=== PATIENT | female | born 1985 | race Hispanic/Latino ===

== ENCOUNTER 2016-10-08 20:08 | Inpatient (IN) | payer OTHER ==
[~2016-10-08] VITALS: Ht 149.9 cm; Wt 80.7 kg
[~2016-10-08 20:08] MED LIST: PREN1TAB25 PO
[2016-10-08] MEDS ORDERED: Lactated Ringer's 1,000 ML IV PRN (20:47)
[2016-10-08] MEDS ORDERED: Carboprost 250 mCg/mL Inj IM PRN (20:50)
[2016-10-08] MEDS ORDERED: Sodium Chloride LOK Flush 10 mL Syringe IVFLUSH PRN (20:50)
[2016-10-08] MEDS ORDERED: Methylergonovine 0.2 mg/mL Inj IM PRN (20:50)
[2016-10-08] MEDS ORDERED: Oxytocin 10 Unit/mL Inj IM PRN (20:50)
[2016-10-08] MEDS ORDERED: Hemorrhage Kit, Post Partum XX ONE (20:50)
[2016-10-08] MEDS ORDERED: Oxytocin 30 Units/500 mL LR 30 UNITS in IV Premix 1 EACH IV PRN ×2 (20:50→22:05)
[2016-10-08] MEDS ORDERED: Methylergonovine 0.2 mg/mL Inj ONE (20:52)
[2016-10-08 21:12] LABS: Mean Corpuscular Hemoglobin 28.3 pg (27.0-35.0); Mean Corpuscular Volume 87.5 fL (81-100)
--- NOTE | 2016-10-09 08:13 | HP ---
[address] [address] HISTORY AND PHYSICAL PATIENT: TRINA REZA : 1985 MR#: [id number] ADMIT: 10/08/2016 JOB ID: [id number] This is a 31-year-old female, 3, para 2, at 40 weeks plus two days presents to [facility] for leaking of fluid and contractions. She was examined and noted she was gross ruptured and with irregular contractions with category 1 tracing. She was examined as 3 cm dilated. This patient had care at [facility]. She started her care around earlier second-trimester. Her labs was noticed that her blood type is O positive. Pap smear negative 2013. Varicella immune, rubella immune, RPR negative, HBsAg negative, HIV negative. She has a HBA1c 5.9. An early GCT was done. It was normal and the routine GCT was done and from the records available now it was positive. Then 3 hour GTT was ordered at 28 weeks but after that patient left out of [facility] and went to [place] for two months. At that two months, she did not have care. She came back this date and had come for the week of September 20. At that time noticed then she tried to do the GTT but she actually threw up in the middle. By the numbers which were done, she passed the GTT but, at that time, it is not certain whether it was appropriate GTT. Also an ultrasound was ordered for estimated weight and the patient did not get it done, and it was not noticed that GBS is negative. Chlamydia gonorrhea negative. ALLERGIES: The patient has no known drug allergies. PAST MEDICAL HISTORY: Patient declined. PAST SURGICAL HISTORY: Patient has declined. OBSTETRICAL HISTORY: She has two vaginal deliveries. 2011, 7 pounds 3 ounces at 41 weeks. 2013 at 39 weeks, the weight was not available for that delivery. SOCIAL HISTORY: She declined smoking, drinking alcohol or drug usage. PHYSICAL EXAMINATION: Is afebrile. Her blood pressure in normal range. Pulse in normal range. Cardiac: RRR, no murmur. Pulmonary: Bilaterally clear. Abdomen: Soft, , nontender. She has irregular contractions. Uterus well relaxed between contractions. Category 1 tracing. Cervical examination as noted before, clear fluid. Extremities nontender. ASSESSMENT AND PLAN: A 31-year-old female, 3, para 2 at 40 weeks plus two days. Rupture of membranes. 1. We will do expectant management at this time. The patient ruptured at 6 p.m. If there are no regular contractions at midnight, will consider Pitocin induction. 2. She is GBS negative. There are no antibiotic needed for the GBS status. 3. The patient can get epidural for pain if needed. At this time, patient does not want any pain management. 4. Expect a vaginal delivery.
[2016-10-09] MEDS ORDERED: Lactated Ringer's 500 ML IV ONE (08:42)
[2016-10-09] MEDS ORDERED: Lactated Ringer's 1,000 ML IV SCH ×2 (08:42→13:01)
[2016-10-09] MEDS ORDERED: Ondansetron 2 mg/mL 2 mL Inj IVPUSH PRN (08:45)
[2016-10-09] MEDS ORDERED: EPHEDrine Sulfate 50 mg/mL Inj IVPUSH PRN (08:45)
[2016-10-09] MEDS ORDERED: fentaNYL 2 mCg/mL-Bupiv 0.125% 100 ML EPIDURAL SCH (08:45)
[2016-10-09] MEDS ORDERED: Atropine 1 mg/10 mL (Code) Syringe IVPUSH PRN (08:45)
--- NOTE | 2016-10-09 09:54 | PCM.HPANE ---
Patient Data Surgeon Admitting Provider:Savana Boogie MD Attending Provider:Savana Boogie MD Primary Care Physician:Rigo Other Provider:Crista Silva Anesthesia Reason for Visit Term Labor Check TERM LABOR CHECK Ht/WT & BMI Body Mass Index Allergies Coded Allergies: No Known Allergies (Unverified Allergy, Unknown, 07/18/16) No Known Drug Allergies (Verified Allergy, Unknown, 10/08/16) Past Anesthesia History Anesthesia History: Denies:: Abnormal Airway, Anesthesia Reactions, Difficult Intubation, Fam Anesthesia Reaction, Fam Malignant Hypertherm, Malignant Hyperthermia Medications Reported Medications Vit#96/Ferrous Fum/FA ( Tablet)1 Each Tablet1 Each PO DAILY 12/30/13 History History of ENT Problems?: No HEENT History: Denies:: Abnormal Airway Cataracts Difficult Intubation Dysphagia Glaucoma Hearing Problem Sinus Problem TMJ Denture Type: None Teeth Condition: Within Normal Limits Hx of Heart Problems?: No Cardiovascular History: Denies:: AICD Abdominal Aortic Aneurism Atrial Fibrillation Cardiac Surgery Chest Pain Congestive Heart Failure Coronary Artery Disease Edema Heart Murmur Hypertension Irregular Heartbeat Pacemaker Peripheral Vascular Rheumatic Fever Thrombophlebitis Valvular Heart Disease Hx of Respiratory Problem?: No Respiratory History: Denies:: Asthma COPD Chest Surgery Cough Dyspnea Emphysema Hemoptysis Oxygen Administration Pneumonia Pulmonary Embolism Tuberculosis Use of C-PAP Machine Use of Inhalers / NEBS Hx Neurologic Problems?: No Hx of GI Problems?: No Hx of Problems?: No Hx Musculoskeletal Problems?: No Hx Surgeries?: No Hx Alcohol Use: NoHx Substance Use: No Stop/Bang Risk Assessment Category Category 1A: Patient has history of documented sleep apnea, and HAS NOT received any narcotic, sedative or anesthesia administration during this stay. Category 1B: Patient has history of documented sleep apnea, and HAS received any narcotic , sedative or anesthesia administration during this stay Category 2: Patient has SUSPECTED Obstructive Sleep Apnea, and HAS received any narcotic , sedative or anesthesia administration during this stay. Category 3: Patient has SUSPECTED Obstructive Sleep Apnea and HAS NOT received narcotic, sedative or anesthesia administration during this stay. Category 4: Outpatient in Procedural Areas with known sleep apnea or who screen positive for High Risk via the STOP/BANG questionnaire. Exam Exam General Appearance: Alert, Oriented X3, Cooperative, Mild Distress HEENT/AIRWAY: MP 2 Lungs: Clear to Auscultation Heart: Exam Unremarkable Meds/Labs/Diagnostics Labs Test 10/08/16 21:00 White Blood Count 6.2th/mm3 (3.8-10.1) Red Blood Count 3.99mil/mm3 (3.90-5.20) Hemoglobin 11.3g/dL (12.0-15.6) Hematocrit 34.9% (35.0-46.0) Mean Corpuscular Volume 87.5fL (81-100) Mean Corpuscular Hemoglobin 28.3pg (27.0-35.0) Mean Corpuscular Hemoglobin Concent 32.4% (32.0-37.0) Red Cell Distribution Width 14.4% (12.3-15.4) Platelet Count 127bil/L (150-400) Plan Impression Patient chart reviewed, patient interviewed and anesthestic plan with risks, benefits, and alternatives discussed, and informed consent obtained. ASA Physical Status: ASA2 Mod Systemic Disease Anesthetic Plan: Epidural Bene/Risks/Altern/Consents: Yes HP Complete Prior to Induction: Yes Edward Glaser MD Oct 09, 2016 08:42
[2016-10-09] MEDS: Lactated Ringer's 1,000 ML IV SCH (09:59)
[2016-10-09] MEDS ORDERED: Witch Hazel-Glycerin Pads TOPICAL PRN (13:05)
[2016-10-09] MEDS ORDERED: Hemorrhage Kit, Post Partum XX ONE (13:05)
[2016-10-09] MEDS ORDERED: Benzocaine (Dermoplast) 20% 60 Gm Spray TOPICAL PRN (13:05)
[2016-10-09] MEDS ORDERED: LANOlin HPA 7 Gm Ointment TOPICAL PRN (13:05)
[2016-10-09] MEDS ORDERED: Oxytocin 10 Unit/mL Inj IM PRN (13:05)
[2016-10-09] MEDS ORDERED: Methylergonovine 0.2 mg/mL Inj IM PRN (13:05)
[2016-10-09] MEDS ORDERED: Carboprost 250 mCg/mL Inj IM PRN (13:05)
[2016-10-09] MEDS ORDERED: Oxytocin 30 Units/500 mL LR 30 UNITS in IV Premix 1 EACH IV PRN (13:05)
--- NOTE | 2016-10-09 13:52 | OP ---
[address] [address] OPERATIVE REPORT PATIENT: TRINA REZA : 1985 MR#: [id number] ADMIT: 10/08/2016 JOB ID: [id number] DATE OF SURGERY: 10/09/2016 PREOPERATIVE DIAGNOSIS(ES): 1. A 40 plus 2 week intrauterine with spontaneous rupture of membranes. 2. Limited and scant care. 3. Abnormal one-hour glucose tolerance test without completion of a 3-hour glucose tolerance test. POSTOPERATIVE DIAGNOSIS(ES): 1. A 40 plus 2 week intrauterine with spontaneous rupture of membranes. 2. Limited and scant care. 3. Abnormal one-hour glucose tolerance test without completion of a 3-hour glucose tolerance test. PROCEDURE PERFORMED: Spontaneous vaginal delivery of a liveborn male infant, born on October 09, 2015. Please see the [facility] documentation for the remainder of the delivery information. Baby had spontaneous cry. Spontaneous movement of all four extremities. Reassuring Apgars scores and what appeared to be average gestational age. However, that documentation is not available at this time. SURGEON: Reina Huerta MD. ANESTHESIA: Epidural. ESTIMATED BLOOD LOSS: 400 cc. FLUID REPLACEMENT: Crystalloid in labor. COMPLICATIONS: None apparent. INDICATIONS: This is a 31-year-old, G3, P 2-0-0-2 female who is presenting at 40 plus 2 weeks gestational age complaining of rupture of membranes and contractions. She is noted to be grossly ruptured and admitted. She was blood type O-positive, antibody screen negative, rubella immune, varicella immune, hep B surface antigen negative, RPR nonreactive, HIV negative, and GBS negative. Her was complicated by limited care with no care between 27 and 36 weeks of . She had an abnormal 1-hour GTT and did not fully complete a 3-hour. Last ultrasound showed estimated weight at 91st percentile. She was admitted on the evening of the , after she was noted to be ruptured. Expectant management was started at that point in time, and 4 hours later, after she was not micky regularly, Pitocin was then started per protocol. She progressed to about 9 cm dilated by 6 a.m. the morning of the , and she was pushing spontaneously, even though she was not completely dilated. Rechecks of her cervix noted increasing cervical swelling, and while she had been 9 cm dilated, followup exams over the next couple hours noted that she was 7, with significant cervical edema. An epidural was then placed for pain relief and she was allowed to rest. Intrauterine pressure catheter and scalp electrode were placed for better monitoring. She was checked again around 11:30 the morning of the , and at this point in time, she was noted a be at +2 station but still with a prominent anterior cervical lip with a moderate amount of swelling. She was checked and noted to be in right occiput transverse positioning and the vertex was then manually rotated into an OA position. The anterior lip was then reduced and the patient began to push, and then quickly was able to bring the vertex to the perineum. PROCEDURE: The patient was noted to be complete and pushing so she was placed in dorsal lithotomy position, prepped and draped in the usual sterile fashion for delivery. She pushed. The head delivered spontaneously in the ZEYNEP position over an intact perineum. The anterior shoulder delivered easily, followed by the posterior shoulder and remainder of the was then easily delivered. The cord was clamped and cut after a 60 second cord clamping delay, and cord blood was then obtained. Pitocin was started per protocol. The placenta delivered intact spontaneously and was passed off the table. The uterus was firm on bimanual massage and there were no remaining membranes palpable. She was noted to have a moderate anterior cervical lip prolapse to the level of the introitus. Examination of the cervix and vaginal vault did not reveal any lacerations. Examination of the perineum showed a midline perineal abrasion which was repaired with 4-0 Vicryl in a [id number] stitch with good hemostasis achieved following this. On bimanual exam, again her uterus was noted to be boggy, and at this point in time, 0.2 mg of Methergine was given IM and good tone was noted following this. The patient tolerated the procedure well. Recovered in labor and delivery with her . All sponge, needle, and instrument counts were correct.
[2016-10-09] MEDS ORDERED: Sodium Chloride LOK Flush 10 mL Syringe IVFLUSH SCH (16:30)
[2016-10-09] MEDS: Ascorbic Acid 500 mg Tablet PO SCH (20:43)
[2016-10-09] MEDS ORDERED: oxyCODONE-Acetamin 5-325 mg Tablet PO ONE (22:35)
[2016-10-10] MEDS: oxyCODONE-Acetamin 5-325 mg Tablet PO PRN ×2 (02:37→12:55)
[2016-10-10] MEDS ORDERED: ASCO-294 PO (06:30)
[2016-10-10] MEDS ORDERED: FERR-83 PO (06:30)
[2016-10-10] MEDS ORDERED: DOCU-41 PO (06:30)
[2016-10-10] MEDS ORDERED: IBUP800T28 PO (06:30)
[2016-10-10 06:57] LABS: Mean Corpuscular Hemoglobin 28.2 pg (27.0-35.0); Mean Corpuscular Volume 88.2 fL (81-100)
--- NOTE | 2016-10-10 08:29 | PCM.PNOBPP ---
Subjective Date of Service Oct 10, 2016 Visit History 31-year-old female, 3, para 2 now 3, at 40 plus 2 weeks intrauterine who presented with spontaneous rupture of membranes. She is status post normal spontaneous vaginal delivery at 12:23 PM on 10/09/16 with a perineal abrasion that was repaired. Subjective She reports that she has some dizziness that worsens with ambulation. She has some dyspnea and palpitations yesterday that resolved. She has moderate lochia. Her appetite is good. Pain Management: PO pain meds Gastrointestinal: Good Appetite, No N/V Postop Activity: Ambulating in Room Only Labs blood type O-positive, antibody screen negative, rubella immune, varicella immune, hep B surface antigen negative, RPR nonreactive, HIV negative, and GBS negative. She had an abnormal 1-hour GTT and did not fully complete a 3-hour. Labs Laboratory Tests 10/10/16 06:25: White Blood Count 11.7, Red Blood Count 3.55, Hemoglobin 10.0, Hematocrit 31.3, Mean Corpuscular Volume 88.2, Mean Corpuscular Hemoglobin 28.2, Mean Corpuscular Hemoglobin Concent 31.9, Red Cell Distribution Width 14.8, Platelet Count 98 Exam Vital Signs Vital Signs: VS reviewed, concerns are (blood pressure this morning 96/55) Exam Abdomen: Uterus is, Fundus firm, Abdomen appropriately tender : Voiding without difficulty Extremities: No cords, No tenderness/swelling Lungs: Clear to Auscultation, Normal Air Movement Heart: Regular Rate/Rhythm, Normal S1, Normal S2, No Murmurs/Rubs/Gallops General: Alert, Oriented X3, Cooperative, No Acute Distress OB Post Assessment/Plan Assessment 31-year-old female, 3, para 2 now 3, at 40 plus 2 weeks intrauterine who presented with spontaneous rupture of membranes. She is status post normal spontaneous vaginal delivery at 12:23 PM on 10/09/16 with a perineal abrasion that was repaired. Her was complicated by limited care with no care between 27 and 36 weeks of . - Continue to monitor vital signs and symptoms - Anticipate discharge home tomorrow She had an abnormal 1-hour GTT and did not fully complete a 3-hour. - Last ultrasound showed estimated weight at 91st percentile. Post plan: Continue routine post care, Discharge home tomorrow Attending Statement The patient was seen and examined together with Anna Maire Castle DO on 03/2017 and I agree with the history, exam and plan as outlined in the note above. Anna Marie Becerril DO Oct 10, 2016 08:29 Ivette Wheeler MD Oct 10, 2016 12:42
[2016-10-10] MEDS: Ascorbic Acid 500 mg Tablet PO SCH ×3 (08:41→22:44)
--- NOTE | 2016-10-11 06:58 | PCM.DIOB ---
Anna Marie Becerril DO 10/11/16 0630: Obstetrical Disch Instruction Dates of Hospitalization Date of Hospital Admission Oct 08, 2016 at 20:51 Providers Admitting Physician: Savana Boogie MD Primary Care Physician: Rigo Attending Physician: Savana Boogie MD Discharge Diagnosis Discharge Diagnosis You had a baby. Problems: Diet Discharge Diet: No restrictions Activity Discharge Activity-General: Pelvic Rest for 6 weeks, Balance rest and activity , Activity as pain allows, Activity as energy allows, No lifting >15 pounds for 2 weeks, No lifting >10 pounds for 4-6 weeks Dressing and Incisional Care Hygiene: May shower, NO bathtub, hot tub or whirlpool, Perineal care Additional Instructions Discharge Instructions Continue your vitamin. Please take the iron and vitamin c together for your anemia. Do not take more pain medication (Percocet) than is necessary -- less is better. Percocet pills have Tylenol (acetaminophen) in them at 325mg per pill. Do not take Tylenol in addition to your pain medication but should take one or the other. Do not take while driving or working. Both iron and Percocet can give you constipation so you have also been given a prescription for docusate to keep you regular. Be sure to follow up in 6 weeks at [facility]. Pelvic rest for 6 weeks (nothing per vagina including intercourse, tampons) If you have a fever greater than 100.4, please call [facility]. There is always someone enterprise integration developer to talk to. If you have an increase in bleeding, call [facility]. If you have a lot of bleeding suddenly, especially if you have symptoms of dizziness & weakness with it, get emergency help. If you start experiencing extreme depression, especially if you feel that you are a danger to yourself or your family, seek emergency help. You have been through a lot -- BE SURE TO TAKE CARE OF YOURSELF. You have been sent home with the following prescriptions: - Percocet 5/325 mg, take 1 tab every 4-6 hours as needed for pain. - Colace 100 mg twice a day as needed for constipation. - Ferrous sulfate 325 mg every day. - Vitamin C 500 mg every day. Take with iron. - Ibuprofen 800mg take 1 tab every 8 hours as needed for pain. Take with a meal. Follow-up in 6 weeks with [facility]. Follow Up Plan Follow-up Provider (F9): Reina Huerta MD Follow-up appointment: Weeks (6) Call your provider for: Fever or Chills, Shortness of breath, Heavy vaginal bleeding, Heavy bleeding, Epigastric pain, Excessive constipation, Vaginal discomfort, Red painful breasts, Other (painful swelling in your legs) Savana Boogie MD 10/16/162052: Obstetrical Disch Instruction Attending Statement I saw and examined patient. I agree with above evaluation and plan. Anna Marie Becerril DO Oct 11, 2016 06:30 Savana Boogie MD Oct 16, 2016 20:53
[2016-10-11] MEDS: Ascorbic Acid 500 mg Tablet PO SCH (09:13)
[2016-10-11] MEDS: oxyCODONE-Acetamin 5-325 mg Tablet PO PRN (09:13)
[2016-10-11] MEDS ORDERED: OXYC1TAB24 PO (09:19)
[2016-10-11 09:55] VITALS: BP 97/53; PULSE 58; RESP 20
--- NOTE | 2016-10-11 11:08 | PCM.DC.OB ---
Obstetrical Discharge Summary Date of Service Oct 11, 2016 Date of hospital admission Oct 08, 2016 at 20:51 Date of Discharge: Oct 11, 2016 Providers Admitting Physician: Savana Boogie MD Primary Care Physician: Rigo Attending Physician: Savana Boogie MD Diagnosis at Time of Discharge 31-year-old female, 3, para 2 now 3, at 40 plus 2 weeks intrauterine . She is status post normal spontaneous vaginal delivery at 12:23 PM on 10/09/16 with a perineal abrasion that was repaired. Limited care Abnormal 1-hour GTT Problems: Invasive procedures Normal spontaneous vaginal delivery Date of Procedure: Oct 09, 2016 Brief History and Physical: From the history and physical performed by Dr. Boogie on 10/09/16: This is a 31-year-old female, 3, para 2, at 40 weeks plus two days presents to [facility] for leaking of fluid and contractions. She was examined and noted she was gross ruptured and with irregular contractions with category 1 tracing. She was examined as 3 cm dilated. This patient had care at [facility]. She started her care around earlier second-trimester. Her labs was noticed that her blood type is O positive. Pap smear negative 2013. Varicella immune, rubella immune, RPR negative, HBsAg negative, HIV negative. She has a HBA1c 5.9. An early GCT was done. It was normal and the routine GCT was done and from the records available now it was positive. Then 3 hour GTT was ordered at 28 weeks but after that patient left out of state and went to [place] for two months. At that two months, she did not have care. She came back this date and had come for the week of September 20. At that time noticed then she tried to do the GTT but she actually threw up in the middle. By the numbers which were done, she passed the GTT but, at that time, it is not certain whether it was appropriate GTT. Also an ultrasound was ordered for estimated weight and the patient did not get it done, and it was not noticed that GBS is negative. Chlamydia gonorrhea negative. Hospital Course: 31-year-old female, 3, para 2 now 3, at 40 plus 2 weeks intrauterine who presented with spontaneous rupture of membranes. She is status post normal spontaneous vaginal delivery at 12:23 PM on 10/09/16 with a perineal abrasion that was repaired. Her was complicated by limited care with no care between 27 and 36 weeks of . - On day of discharge, patient reported that the dizziness and palpitations she felt the day before had resolved. She had a good appetite and did not have nausea or vomiting. Her pain was well controlled on PO pain medications. She was urinating without issues. Her lochia has been light. Her vital signs were stable. Her hemoglobin and hematocrit were stable. On exam, her heart was a regular rate and rhythm, lungs were clear to auscultation bilaterally, uterus was firm, and her legs did not have edema or tenderness. She had an abnormal 1-hour GTT and did not fully complete a 3-hour. - Last ultrasound showed estimated weight at 91st percentile. Ascorbate Calcium (Vitamin C) 500 Mg Tablet 500 MG PO DAILY Prescribed by: BRONSON CAMERON DO Docusate Sodium (Colace) 100 Mg Capsule 100 MG PO BID PRN PRN For Constipation Prescribed by: BRONSON CAMERON DO Ferrous Sulfate (Ferrous Sulfate) 325 Mg Tablet 325 MG PO DAILY Prescribed by: BRONSON CAMERON DO Ibuprofen (Ibuprofen) 800 Mg Tablet 800 MG PO TID PRN PRN For Pain Prescribed by: BRONSON CAMERON DO Vit#96/Ferrous Fum/FA ( Tablet) 1 Each Tablet 1 EACH PO DAILY ( Reported) oxyCODONE-Acetaminophen 5-325 mg (oxyCODONE-Acetaminophen 5-325 mg) 1 Each Tablet 1 TAB PO Q6H PRN PRN For Pain Prescribed by: BRONSON CAMERON DO Attending Statement: I saw patient and examined her. I agree with above evaluation and plan copies to: Reina Huerta MD, Marissa L DO Oct 11, 2016 11:08 Savana Boogie MD Oct 16, 2016 21:37
== END 2016-10-11 10:21 | disposition home or self-care (01) | DRG 775 ==
LOC: FBCO 20:08 → FBC 20:51
PROVIDERS: ADMIT Obstetrics & Gynecology; ATTEND Obstetrics & Gynecology
PROC: 10E0XZZ Delivery of Products of Conception, External Approach (ICD-10-PCS; principal; 2016-10-09)
PROC: 0HQ9XZZ Repair Perineum Skin, External Approach (ICD-10-PCS; 2016-10-09)
PROC: 10H07YZ Insertion of Other Device into Products of Conception, Via Natural or Artificial Opening (ICD-10-PCS; 2016-10-09)
DX: O70.0 First degree perineal laceration during delivery (principal); O99.02 Anemia complicating childbirth; O99.814 Abnormal glucose complicating childbirth; Z3A.40 40 weeks gestation of pregnancy; Z37.0 Single live birth